=== PATIENT | female | born 1965 | race Caucasian/White ===

== ENCOUNTER 2022-07-13 18:30 | Emergency (ER) | payer MEDICAID ==
[~2022-07-13] VITALS: Ht 165.1 cm; Wt 60.1 kg
--- NOTE | 2022-07-13 19:41 | NUR ---
RECEIVED THIS PATIENT. A CASE OF 57/F CAME WITH CC OF HEADACHE WITH FACIAL SWELLING ANG ORAL HEMATOMA. SEEN INITIALLY BY MD. PATIENT IS ATTACHED TO MONITOR. VITALS CHECKED.
[2022-07-13] MEDS ORDERED: ACETAMINOPHEN 650 MG/20.3 ML UDC ONE (19:43)
[2022-07-13] MEDS: ACETAMINOPHEN 325 MG TABLET PO ONE ×2 (19:47→20:05)
--- NOTE | 2022-07-13 19:47 | NUR ---
PATIENT GIVEN THE ORAL TYLENOL USING SYRINGE. PATIENT SPIT IT OUT. SHE REFUSED THE MEDICINE.
--- NOTE | 2022-07-13 19:47 | NUR ---
IV CANNULA G20 INSERTED ON RIGHT WRIST. BLOOD DRAWN AND SENT TO LAB.
[2022-07-13] MEDS ORDERED: ACETAMINOPHEN 325 MG TABLET ONE (19:50)
--- NOTE | 2022-07-13 19:52 | NUR ---
PT SAID THAT SHE CAN TAKE TABLET ONLY
--- NOTE | 2022-07-13 20:03 | NUR ---
REPORT GIVEN TO NURSE PANTOJA FOR JENNIFER
[2022-07-13 20:19] LABS: CALCIUM, SERUM 9.2 mg/dL (8.5-10.1); CREATININE 0.6 mg/dL (0.6-1.3); POTASSIUM 3.9 mmol/L (3.5-5.1)
[2022-07-13 20:28] LABS: ALBUMIN 3.8 g/dL (3.4-5.0); BILIRUBIN,DIRECT 0.1 mg/dL (0.0-0.2); BILIRUBIN,TOTAL 0.3 mg/dL (0.2-1.0); TOTAL PROTEIN, SERUM 8.1 g/dL (6.4-8.2)
[2022-07-13 20:29] LABS: BASOPHILS % (AUTO) 0.3 % (0.0-2.0); HEMATOCRIT 38 % (33-45); HEMOGLOBIN 12.3 g/dL (11.5-14.8); LYMPHOCYTES # (AUTO) 3.2 K/uL (0.8-4.8); LYMPHOCYTES % (AUTO) 25.9 % (20.0-44.0); MEAN CORPUSCULAR HGB CONC 32 g/dl (31.0-36.0); MEAN CORPUSCULAR VOLUME 86 fL (82-100); MONOCYTES % (AUTO) 8.3 % (2.0-12.0); NEUTROPHILS # (AUTO) 7.8 K/uL (1.8-8.9); NEUTROPHILS % (AUTO) 63.5 % (43.0-81.0); PLATELET COUNT (AUTO) 361 K/uL (150-450); RED BLOOD CELL COUNT(AUTO) 4.45 MIL/uL (4.0-5.2); WHITE BLOOD COUNT (AUTO) 12.3 K/uL (4.3-11.0)
--- NOTE | 2022-07-13 21:33 | NUR ---
Patient discharged to home in stable condition. Written and verbal after care instructions given. Patient verbalizes understanding of instruction.IV removed. Catheter intact and site benign. Pressure and 4x4 applied to site. No bleeding noted.
[2022-07-13 21:34] VITALS: BP 142/85
== END 2022-07-13 21:35 | disposition home or self-care (01) ==
LOC: ER 18:40
DX: R51.9 Headache, unspecified (principal); M79.81 Nontraumatic hematoma of soft tissue; D72.829 Elevated white blood cell count, unspecified; R70.0 Elevated erythrocyte sedimentation rate; I10 Essential (primary) hypertension
CPT/HCPCS: 36415; 70450-TC; 80048-TC; 80076-TC; 85025-TC; 85652-TC; 85730-TC; 86140-TC